=== PATIENT | female | born 2000 | race African-American/Black ===

== ENCOUNTER 2021-01-25 22:50 | Inpatient (IN) ==
[2021-01-25] MEDS ORDERED: ONDANSETRON 4 MG/2 ML VIAL IV PRN (23:25)
[2021-01-25] MEDS ORDERED: LACTATED RINGERS 1,000 ML IV ONE (23:27)
[2021-01-25] MEDS ORDERED: ePHEDrine 50 MG/ML VIAL IV PRN (23:27)
[2021-01-25] MEDS ORDERED: hydrOXYzine HCL 25 MG/1 ML VIAL IM PRN (23:27)
[2021-01-25] MEDS ORDERED: FAMOTIDINE 20 MG/2 ML VIAL IV ONE (23:27)
[2021-01-25] MEDS ORDERED: ONDANSETRON 4 MG/2 ML VIAL IV ONE (23:27)
[2021-01-25] MEDS ORDERED: NALOXONE 0.4 MG/ML VIAL IV PRN (23:27)
[2021-01-25] MEDS ORDERED: diphenhydrAMINE 50 MG/1 ML VIAL IV PRN (23:27)
[2021-01-25] MEDS ORDERED: PROMETHAZINE 25 MG/1 ML VIAL IM PRN (23:27)
[2021-01-25] MEDS ORDERED: CITRIC ACID/SODIUM CITRATE 30 ML UDCUP PO ONE (23:27)
[2021-01-25] MEDS ORDERED: LACTATED RINGERS 1,000 ML IV SCH (23:30)
[2021-01-25] MEDS ORDERED: fentaNYL 2 MCG/ROPIV 0.2% EPID 100 ML EPIDURAL SCH (23:30)
[2021-01-25 23:41] LABS: Basophils % 0.2 % (0.0-0.8); Hematocrit 33.9 VOL% (35.7-47.0); Hemoglobin 11.1 GM/DL (12.0-16.0); Immature Granulocytes % 1.6 %; Immature Granulocytes Absolute 0.26 #; Lymphocytes # 1.8 10*3/uL (1.4-4.0); Lymphocytes % 11.2 % (21.3-54.2); Mean Corpuscular HGB Conc 32.7 GM/DL (32-36); Mean Corpuscular Volume 89.2 FL (87-102); Mean Platelet Volume 8.8 FL (9.6-12.0); Monocytes % 4.9 % (1.7-12.7); Neutrophils % 82.1 % (38.7-73.9); Platelet Count 348 T/CUMM (130-400); Red Cell Distribution Width 13.2 % (9.3-17.3); White Blood Count 16.4 T/CUMM (4-12)
[2021-01-25 23:56] LABS: Albumin 3.1 G/DL (3.4-5.0); Bilirubin,Total 0.6 MG/DL (0.20-1.00); Calcium 8.7 MG/DL (8.5-10.1); Potassium 3.5 MMOL/L (3.5-5.1); Total Protein 7.4 G/DL (6.4-8.2)
[2021-01-25] MEDS ORDERED: MEPERIDINE 50 MG/1 ML VIAL IV ONE (23:57)
[2021-01-26] MEDS ORDERED: METHYLERGONOVINE 0.2 MG/1 ML AMP ONE (00:09)
[2021-01-26] MEDS ORDERED: OXYTOCIN/LR 20 UNIT/1,000 ML BAG IV ONE ×2 (00:09→02:31)
[2021-01-26] MEDS ORDERED: miSOPROStoL 200 MCG TABLET ONE ×2 (00:09→01:38)
[2021-01-26] MEDS ORDERED: TRANEXAMIC ACID 1,000 MG/10 ML VIAL ONE (00:09)
[2021-01-26] MEDS ORDERED: CARBOPROST TROMETHAMINE 250 MCG/ML AMP IM ONE (00:10)
[2021-01-26] MEDS ORDERED: fentaNYL 100 MCG/2 ML VIAL ONE (00:21)
[2021-01-26] MEDS ORDERED: miSOPROStoL 200 MCG TABLET RECTAL ONE (01:47)
[2021-01-26 01:51] LABS: Cord Arterial Blood HCO3 14.9 MMOL/L
[2021-01-26 01:54] LABS: Cord Venous Blood HCO3 17.7 MMOL/L; Cord Venous Blood PCO2 47.2 MMHG
[2021-01-26] MEDS ORDERED: DIPH/TET/ACEL PERT BOOSTER VACCINE 0.5 ML VIAL IM ONE (02:31)
[2021-01-26] MEDS ORDERED: BISACODYL 10 MG SUPP RECTAL PRN (02:31)
[2021-01-26] MEDS ORDERED: BENZOCAINE 20%/MENTHOL 0.5% SPRAY 56 GM CAN TOP PRN (02:31)
[2021-01-26] MEDS ORDERED: ONDANSETRON 4 MG/2 ML VIAL IV PRN (02:31)
[2021-01-26] MEDS ORDERED: HYDROCORTISONE 2.5% RECTAL CREAM 30 GM TUBE TOP PRN (02:31)
[2021-01-26] MEDS ORDERED: ACETAMINOPHEN 325 MG TABLET PO PRN (02:31)
[2021-01-26] MEDS ORDERED: RHO(D) IMMUNE GLOBULIN 300 MCG SYRINGE IM ONE (02:31)
[2021-01-26] MEDS ORDERED: WITCH HAZEL PADS 100/JAR TOP PRN (02:31)
[2021-01-26] MEDS ORDERED: LANOLIN 50% CREAM 0.3 OZ TUBE TOP PRN (02:31)
[2021-01-26] MEDS ORDERED: MEASLES/MUMPS/RUBELLA VACCINE 0.5 ML VIAL SUBCUT ONE (02:31)
[2021-01-26] MEDS ORDERED: oxyCODONE/ACETAMINOPHEN 5-325 MG TABLET PO PRN ×2 (02:31)
[2021-01-26] MEDS ORDERED: INFLUENZA VIRUS VACCINE 0.5 ML SYRINGE IM ONE (02:36)
[2021-01-26] MEDS: IBUPROFEN 800 MG TABLET PO PRN ×2 (02:43→19:59)
[2021-01-26] MEDS: DOCUSATE SODIUM 100 MG CAPSULE PO SCH ×2 (08:32→21:27)
[2021-01-26 11:32] LABS: Basophils % 0.2 % (0.0-0.8); Hematocrit 27.2 VOL% (35.7-47.0); Hemoglobin 8.9 GM/DL (12.0-16.0); Lymphocytes % 10.9 % (21.3-54.2); Mean Corpuscular HGB Conc 32.7 GM/DL (32-36); Mean Corpuscular Volume 90.7 FL (87-102); Mean Platelet Volume 8.9 FL (9.6-12.0); Monocytes % 8.5 % (1.7-12.7); Neutrophils % 79.4 % (38.7-73.9); Platelet Count 277 T/CUMM (130-400); Red Cell Distribution Width 13.3 % (9.3-17.3); White Blood Count 18.8 T/CUMM (4-12)
[2021-01-26] MEDS: FERROUS SULFATE 325 MG TABLET PO SCH (21:27)
[2021-01-27 06:50] LABS: Basophils % 0.3 % (0.0-0.8); Eosinophils # 0.1 10*3/uL (0.0-0.87); Eosinophils % 0.7 % (0.00-10.9); Hematocrit 25.9 VOL% (35.7-47.0); Hemoglobin 8.2 GM/DL (12.0-16.0); Immature Granulocytes % 1.3 %; Immature Granulocytes Absolute 0.19 #; Lymphocytes # 3.1 10*3/uL (1.4-4.0); Lymphocytes % 20.9 % (21.3-54.2); Mean Corpuscular HGB Conc 31.7 GM/DL (32-36); Mean Corpuscular Volume 92.5 FL (87-102); Mean Platelet Volume 8.9 FL (9.6-12.0); Monocytes % 8.3 % (1.7-12.7); Neutrophils % 68.5 % (38.7-73.9); Platelet Count 248 T/CUMM (130-400); Red Cell Distribution Width 13.3 % (9.3-17.3); White Blood Count 14.6 T/CUMM (4-12)
[2021-01-27] MEDS: FERROUS SULFATE 325 MG TABLET PO SCH ×2 (07:36→08:51)
[2021-01-27] MEDS: DOCUSATE SODIUM 100 MG CAPSULE PO SCH ×2 (07:36→08:50)
[2021-01-27 08:07] VITALS: BP 111/66
== END 2021-01-27 14:50 | disposition home or self-care (01) | DRG 560 ==
LOC: N.OBOUT 22:50 → N.LD 22:51 → N.OB 01-26 06:25
PROVIDERS: ADMIT Student in an Organized Health Care Education/Training Program; ATTEND Student in an Organized Health Care Education/Training Program